=== PATIENT | female | born 1975 | race Caucasian/White ===

== ENCOUNTER 2023-08-28 15:09 | Emergency (ER) | payer MEDICAID ==
[~2023-08-28] VITALS: Ht 152.4 cm; Wt 85.3 kg
[2023-08-28 15:15] VITALS: BP 105/62; PULSE 69; RESP 18; TEMP 97.1; O2SAT 99
[2023-08-28 16:32] LABS: BASOPHILS # (AUTO) 0.1 K/uL (0.00-0.22); BASOPHILS % (AUTO) 0.7 % (0.0-2.0); EOSINOPHILS # (AUTO) 0.3 K/uL (0-0.4); EOSINOPHILS % (AUTO) 3.9 % (0.0-4.0); HEMATOCRIT 40.1 % (36-48); HEMOGLOBIN 13.9 g/dL (12.0-16.0); LYMPHOCYTES # (AUTO) 3.3 K/uL (2.5-16.5); LYMPHOCYTES % (AUTO) 47.1 % (20.5-51.1); MEAN CORPUSCULAR HEMOGLOBIN 31 pg (27-31); MEAN CORPUSCULAR HGB CONC 35 g/dL (33-37); MEAN CORPUSCULAR VOLUME 88.6 fL (80-94); MONOCYTES # (AUTO) 0.4 K/uL (0.8-1.0); MONOCYTES % (AUTO) 6.1 % (1.7-9.3); NEUTROPHILS % (AUTO) 42.2 % (42.2-75.2); PLATELET COUNT (AUTO) 303 K/uL (140-450); RED BLOOD CELL COUNT(AUTO) 4.53 MIL/uL (4.20-5.40); RED CELL DISTRIBUTION WIDTH 13.3 % (11.6-13.7); WHITE BLOOD COUNT (AUTO) 7.1 K/uL (4.8-10.8)
[2023-08-28 16:42] LABS: ANION GAP 11.7 (8-16); CALCIUM 9.1 mg/dL (8.5-10.1); CARBON DIOXIDE 24.9 mmol/L (21-32); CREATININE 0.5 mg/dL (0.6-1.3); POTASSIUM 3.6 mmol/L (3.5-5.1)
[2023-08-28 16:45] LABS: INR 1.05 (0.8-1.2)
[2023-08-28 18:56] VITALS: TEMP 97.1
[2023-08-28] MEDS ORDERED: ASPI-1822 PO (20:28)
[2023-08-28] MEDS: ASPIRIN 81 MG TAB.CHEW PO ONE (20:31)
[2023-08-28 20:58] VITALS: BP 121/75; PULSE 72; RESP 16; O2SAT 96
== END 2023-08-28 20:58 | disposition home or self-care (01) ==
LOC: MED 15:09
DX: I67.1 Cerebral aneurysm, nonruptured (principal); R07.9 Chest pain, unspecified; Z79.82 Long term (current) use of aspirin
CPT/HCPCS: 36415; 70450; 70496; 70498; 71045; 80048; 84484; 85025; 85610; 85730; 93005; 99285; Q0092; Q9967